=== PATIENT | female | born 1955 | race Caucasian/White ===

== ENCOUNTER 2018-05-16 08:55 | Observation (INO) | payer MEDICAID ==
--- NOTE | 2018-05-16 08:22 | PDHPUP ---
History & Physical Update H&P update statement: This history and physical update is based on an assessment of the patient which was completed after admission or registration (within 24 hours), but prior to the surgery/procedure. H&P update: H&P reviewed & patient examined, no change in patient's condition since H&P completed
[2018-05-16] MEDS ORDERED: ASPIRIN EC 325 MG TAB PO ONE ×2 (08:57→09:11)
[2018-05-16] MEDS ORDERED: diphenhydrAMINE 25 MG CAP PO ONE ×2 (08:57→09:10)
[2018-05-16] MEDS ORDERED: NS 1,000 ML IV ONE (08:57)
[2018-05-16] MEDS ORDERED: DIAZEPAM 5 MG TAB PO ONE (08:57)
[2018-05-16] MEDS ORDERED: FAMOTIDINE 20 MG TAB PO ONE (08:57)
[2018-05-16] MEDS ORDERED: FAMOTIDINE 20 MG TAB ONE (09:10)
[2018-05-16] MEDS ORDERED: DIAZEPAM 5 MG TAB ONE (09:11)
[2018-05-16 09:32] LABS: PLATELET COUNT 455 10^3/uL (150-400)
--- NOTE | 2018-05-16 09:32 | PDPROPOC ---
Sedation Plan of Care Sedation Plan of Care: vital signs stable, mental status noted, patient educated of risks, benefits, alternatives, patient can tolerate sedation ASA Classification: ASA 1 Planned drugs: fentanyl, midazolam Mallampati Score: Class 1 Mallampati Reference Image: Patient passed 3-3-2 rule?: Yes
[2018-05-16] MEDS ORDERED: fentaNYL 100 MCG/2 ML INJ ONE ×2 (09:46→10:47)
[2018-05-16] MEDS ORDERED: MIDAZOLAM 2 MG/2 ML VIAL ONE ×2 (09:46→10:34)
[2018-05-16] MEDS ORDERED: LIDOCAINE 1% 300 MG/30 ML SDV ONE (09:46)
[2018-05-16] MEDS ORDERED: VERAPAMIL 5 MG/2 ML VIAL ONE (09:46)
[2018-05-16] MEDS ORDERED: IOPAMIDOL (ISOVUE-370) 150 ML BTL IV ONE (09:47)
[2018-05-16] MEDS ORDERED: HEPARIN 10,000 UNIT/10 ML MDV (1,000 UNIT/ML) ONE (09:47)
[2018-05-16 10:03] LABS: INR 0.92 (0.83-1.16); PROTIME(PATIENT) 12.6 SEC (12.0-15.0)
[2018-05-16] MEDS ORDERED: BIVALIRUDIN 250 MG/5 ML VIAL IV ONE (10:43)
[2018-05-16] MEDS ORDERED: CLOPIDOGREL BISULFATE 75 MG TAB ONE (10:47)
--- NOTE | 2018-05-16 10:52 | PDDXCAT ---
Diagnostic Cath Note - . Date: 05/16/18 Director Of Psychiatry: Yoly Indication: other (CCS class 4 angina. Abnormal stress MPI indicating inferior ischemia. Known CAD.) - Materials Left Heart Cath size: 5F Left Heart Cath materials: standard multipack (JL4, JR4, pigtail) - Findings-Left Heart Catheterization LM: Moderate caliber vessel. Appropriate bifurcation into the left anterior descending and circumflex distributions. Angiographically free of disease. LAD: Moderate caliber vessel in the proximal segment. Small in the distal segment. 2 principal diagonal branches. Luminal irregularities with no obstructive lesions. LCX: Stented segment in the proximal vessel extending into the 1st obtuse marginal branch. This stent is widely patent. Otherwise there are luminal irregularities with no obstructions. RCA: Stented mid segment prior to the crux. 80% lesion noted immediately prior to the previously placed stent. The PDA is identified. Otherwise luminal irregularities are noted. LVEF: 65-70%. Focal area of hypokinesis in the apical portion of the diaphragmatic segment. Complications: None. Estimated blood loss: <50ml Closure method: manual pressure Assessment: 1. Known CAD with previous stenting of the proximal circumflex extending into the 1st obtuse marginal branch and the midportion of the RCA. 2. Recurrent angina with an abnormal stress test indicating inferior ischemia. 3. Evidence of a recurrent high-grade lesion immediately proximal to the previously placed stent. 4. Preserved left ventricular systolic function with evidence of apical diaphragmatic hypokinesis. Plan: She is referred to Interventional Cardiology for PCI and stenting of the right coronary artery. Intervention: There is a full and separately dictated report. Patient Problems: Problems Problem Status Onset Abnormal cardiovascular stress test Acute Chest pain Acute
[2018-05-16] MEDS ORDERED: NITROGLYCERIN 0.4 MG BTL SL PRN (11:06)
[2018-05-16] MEDS ORDERED: ONDANSETRON 4 MG/2 ML VIAL IVP PRN (11:06)
[2018-05-16] MEDS ORDERED: CLOPIDOGREL BISULFATE 75 MG TAB PO ONE (11:06)
[2018-05-16] MEDS ORDERED: ATROPINE SULFATE 1 MG/10 ML SYR IVP PRN (11:06)
[2018-05-16] MEDS ORDERED: ONDANSETRON 4 MG/2 ML VIAL ONE (11:10)
--- NOTE | 2018-05-16 11:10 | PDCTREPORT ---
Cardiothoracic Procedure Rpt Cardiothoracic Procedure Report: Procedure: Implantation of a drug-eluting stent in the distal right coronary artery Indications: Angina with critical stenosis seen by diagnostic angiogram. After reviewing diagnostic angiograms performed by my partner Dr. Davis Frederick was elected to proceed with ad Hoc PCI. Patient was anticoagulated with Angiomax. Using an [id number]-fxb-cguv technique, a right femoral sheath was exchanged in the right femoral artery. A 6 Azeri JR4 guiding catheter was used to intubate the right coronary artery. Using a 0.014 intuition wire the RCA stenosis was crossed and the wire placed in the distal vessel. A 2.75 x 12 mm synergy stent was then placed on the wire and positioned across the lesion. Was deployed using a single inflation up to 18 atmospheres for a final diameter of 3 mm. Repeat angiogram showed FRANCK grade 3 flow with good step-up and step- down. Wire and balloons were withdrawn. Sheaths were secured in patient is taken to recovery for continued care. Conclusions: Successful PCI and stenting of the distal right coronary artery with a 2.75 x 12 mm synergy stent. Patient Problems: Problems Problem Status Onset Abnormal cardiovascular stress test Acute Chest pain Acute
--- NOTE | 2018-05-16 11:21 | CPEKG ---
Test Reason : OPEN Blood Pressure : / mmHG Vent. Rate : 055 BPM Atrial Rate : 056 BPM P-R Int : 173 ms QRS Dur : 091 ms QT Int : 423 ms P-R-T Axes : 055 046 024 degrees QTc Int : 405 ms Sinus rhythm Ventricular premature complex Probable left atrial enlargement noted. Non-specific ST depression in lateral leads. Confirmed by Gui Hernandez ([id number]) on 05/16/2018 11:20:55 AM Referred By: Confirmed By:Gui Hernandez
--- NOTE | 2018-05-16 16:18 | ASMTCMCOM ---
CM Note CM Note Notes: Chart review completed. Pt is single and lives in [place]. Dtr is next of kin. Pt admitted for observation after coronary artery stent placement. No therapies ordered. Pt will likely discharge independent. No CM needs noted at this time. CM to follow. D/C Plan: Independent Date Signed: 05/16/2018 04:18 PM Electronically Signed By:Alejandra Brody
[2018-05-16] MEDS ORDERED: ACETAMINOPHEN 500 MG TAB PO PRN (16:50)
--- NOTE | 2018-05-16 17:57 | CPEKG ---
Test Reason : OPEN Blood Pressure : / mmHG Vent. Rate : 048 BPM Atrial Rate : 048 BPM P-R Int : 169 ms QRS Dur : 104 ms QT Int : 453 ms P-R-T Axes : 056 056 030 degrees QTc Int : 405 ms Sinus bradycardia Non-specific ST depressions noted. Confirmed by Gui Hernandez ([id number]) on 05/16/2018 5:57:22 PM Referred By: Confirmed By:Gui Hernandez
[2018-05-16] MEDS: FAMOTIDINE 20 MG TAB PO SCH (20:36)
[2018-05-16] MEDS ORDERED: amLODIPine BESYLATE 5 MG TAB PO SCH (21:00)
[2018-05-16] MEDS ORDERED: ROSUVASTATIN CALCIUM 10 MG TAB PO SCH (21:00)
[2018-05-17 07:43] VITALS: BP 147/72
[2018-05-17] MEDS: FAMOTIDINE 20 MG TAB PO SCH (08:45)
[2018-05-17] MEDS ORDERED: ASPIRIN EC 81 MG TAB PO SCH (09:00)
[2018-05-17] MEDS ORDERED: HYDROCHLOROTHIAZIDE 25 MG TAB PO SCH (09:00)
[2018-05-17] MEDS ORDERED: CLOPIDOGREL BISULFATE 75 MG TAB PO SCH (09:00)
[2018-05-17] MEDS ORDERED: NEBIVOLOL HCL 5 MG TAB PO SCH (09:00)
--- NOTE | 2018-05-17 10:04 | PDDCSUM ---
Discharge Summary Discharge Summary: Admission date: 05/16/2018 Discharge date 05/17/2018 Admission diagnosis angina Discharge diagnosis angina status post PCI and stenting of the distal right coronary artery Procedures during this hospitalization elective left heart catheterization followed by PCI and stenting Consultations: Intervetnional cardiology Follow-up: Dr. Fareed Hung [facility] a [facility]. Referral cardiac rehabilitation [facility] course patient is a 62-year-old female admitted electively with angina. She underwent a diagnostic angiogram by Dr. Frederick. This revealed a critical RCA stenosis. She underwent successful PCI and stenting. Initial access was hampered from the radial artery and ultimately right femoral artery was used to perform the procedures. There were no complications. Secondary risk factors for well modified. She is currently on dual antiplatelet therapy with Plavix and aspirin. Crestor is used as statin. She is on ARB. She tolerated the procedure well as feeling well. On the day of examination sure blood pressure is 130/70 current heart rate is 72 chest was clear. Cardiac exam revealed a regular rate and rhythm. Puncture sites were healing well without significant ecchymosis erythema or edema. Patient is ready for discharge. Questions were answered. She will be followed up as outlined above.
--- NOTE | 2018-05-17 10:57 | ASDISCHSUM ---
Discharge Information Plan Status:Home with No Needs Medically Cleared to Leave:05/16/2018 Discharge Date:05/16/2018 CM D/C Disposition:Home, Routine, Self-Care ADT D/C Disposition: Projected Discharge Date:05/16/2018 Transportation at D/C:Family Discharge Delay Reason: Follow-Up Date:05/16/2018 Discharge Slot: Final Diagnosis: Placement Information Patient Contact Information Contact Name:MELE CARRILLO Relationship:Daughter Address: Work Phone: City: [facility] Phone: State/[employer]ply Hired Code: Email: Financial Information Financial Class:Medicaid Primary Plan Desc:[employer] Primary Plan Number:[id number] Secondary Plan Desc: Secondary Plan Number: Assessment Information [facility] CM Progress Note CM Note CM Note Notes: Chart review completed. Pt is single and lives in [place]. Dtr is next of kin. Pt admitted for observation after coronary artery stent placement. No therapies ordered. Pt will likely discharge independent. No CM needs noted at this time. CM to follow. D/C Plan: Independent Date Signed: 05/16/2018 04:18 PM Electronically Signed By:Alejandra Brody LACE LACE Length of stay for Answers: Less than 1 day current admission Acuity / Level of Answers: No Care: Did the patient have an inpatient admission? Comorbidities - select Answers: Diabetes (uncontrolled or all that apply controlled) Previous myocardial infarction Other Notes: HTN; Hx of PE; HLD # of Emergency department Answers: 0 visits in the last 6 months Score: 3 Date Signed: 05/17/2018 10:55 AM Electronically Signed By:Renea Dobson RN Intervention Information
== END 2018-05-17 12:36 | disposition home or self-care (01) ==
LOC: FCATH 08:55 → F2W 11:12
PROVIDERS: ADMIT Internal Medicine Interventional Cardiology; ATTEND Internal Medicine Interventional Cardiology
PROC: 027034Z Dilation of Coronary Artery, One Artery with Drug-eluting Intraluminal Device, Percutaneous Approach (ICD-10-PCS; principal; 2018-05-16)
PROC: B2151ZZ Fluoroscopy of Left Heart using Low Osmolar Contrast (ICD-10-PCS; principal; 2018-05-16)
PROC: 4A023N7 Measurement of Cardiac Sampling and Pressure, Left Heart, Percutaneous Approach (ICD-10-PCS; principal; 2018-05-16)
PROC: B2111ZZ Fluoroscopy of Multiple Coronary Arteries using Low Osmolar Contrast (ICD-10-PCS; principal; 2018-05-16)
DX: I25.119 Atherosclerotic heart disease of native coronary artery with unspecified angina pectoris (principal); R94.39 Abnormal result of other cardiovascular function study; I10 Essential (primary) hypertension; E78.00 Pure hypercholesterolemia, unspecified; E11.9 Type 2 diabetes mellitus without complications; Z79.82 Long term (current) use of aspirin; Z79.84 Long term (current) use of oral hypoglycemic drugs; Z87.891 Personal history of nicotine dependence; Z82.49 Family history of ischemic heart disease and other diseases of the circulatory system; Z95.5 Presence of coronary angioplasty implant and graft
CPT/HCPCS: 92928; 93005; 93458; C1769; C1887; C1874; C9600; J0461; J0583; J1644; J2250; J2270; J2405; J3010; Q9967